=== PATIENT | female | born 1990 | race Caucasian/White ===

== ENCOUNTER → 2023-12-26 07:47 | Outpatient (REF) | payer OTHER, SELFPAY | LOC: PNTC 07:47 | PROVIDERS: ATTENDING PHYSICIAN Obstetrics & Gynecology | DX: Z87.410 Personal history of cervical dysplasia (principal); O09.819 Supervision of pregnancy resulting from assisted reproductive technology, unspecified trimester; O16.9 Unspecified maternal hypertension, unspecified trimester | CPT/HCPCS: 76805; 76817 ==

== ENCOUNTER → 2024-01-24 08:15 | Outpatient (REF) | payer OTHER, SELFPAY | LOC: PNTC 08:15 | PROVIDERS: ATTENDING PHYSICIAN Obstetrics & Gynecology | DX: O09.529 Supervision of elderly multigravida, unspecified trimester (principal); O34.40 Maternal care for other abnormalities of cervix, unspecified trimester; O09.819 Supervision of pregnancy resulting from assisted reproductive technology, unspecified trimester; O10.019 Pre-existing essential hypertension complicating pregnancy, unspecified trimester | CPT/HCPCS: 76811; 76817 ==

== ENCOUNTER → 2024-02-20 10:42 | Outpatient (REF) | payer OTHER, SELFPAY | LOC: PNTC 10:42 | PROVIDERS: ATTENDING PHYSICIAN Obstetrics & Gynecology | DX: O09.819 Supervision of pregnancy resulting from assisted reproductive technology, unspecified trimester (principal); O09.529 Supervision of elderly multigravida, unspecified trimester; O10.019 Pre-existing essential hypertension complicating pregnancy, unspecified trimester; O34.40 Maternal care for other abnormalities of cervix, unspecified trimester | CPT/HCPCS: 76816; 76817 ==

== ENCOUNTER → 2024-03-20 09:22 | Outpatient (REF) | payer OTHER, SELFPAY | LOC: PNTC 09:22 | PROVIDERS: ATTENDING PHYSICIAN Obstetrics & Gynecology | DX: O34.40 Maternal care for other abnormalities of cervix, unspecified trimester (principal) | CPT/HCPCS: 76816 ==

== ENCOUNTER → 2024-04-17 08:36 | Outpatient (REF) | payer OTHER, SELFPAY | LOC: PNTC 08:36 | PROVIDERS: ATTENDING PHYSICIAN Obstetrics & Gynecology | DX: Z87.410 Personal history of cervical dysplasia (principal); O10.019 Pre-existing essential hypertension complicating pregnancy, unspecified trimester; O09.819 Supervision of pregnancy resulting from assisted reproductive technology, unspecified trimester | CPT/HCPCS: 59025; 76816 ==

== ENCOUNTER → 2024-04-24 08:33 | Outpatient (REF) | payer OTHER, SELFPAY | LOC: PNTC 08:33 | PROVIDERS: ATTENDING PHYSICIAN Obstetrics & Gynecology | DX: O34.40 Maternal care for other abnormalities of cervix, unspecified trimester (principal) | CPT/HCPCS: 59025; 76815 ==

== ENCOUNTER → 2024-05-01 14:33 | Outpatient (REF) | payer OTHER, SELFPAY | LOC: PNTC 14:33 | PROVIDERS: ATTENDING PHYSICIAN Obstetrics & Gynecology | DX: O34.40 Maternal care for other abnormalities of cervix, unspecified trimester (principal); Z34.90 Encounter for supervision of normal pregnancy, unspecified, unspecified trimester | CPT/HCPCS: 76815 ==

== ENCOUNTER → 2024-05-08 08:32 | Outpatient (REF) | payer OTHER, SELFPAY | LOC: PNTC 08:32 | PROVIDERS: ATTENDING PHYSICIAN Obstetrics & Gynecology | DX: O34.40 Maternal care for other abnormalities of cervix, unspecified trimester (principal) | CPT/HCPCS: 59025; 76815 ==

== ENCOUNTER → 2024-05-15 08:32 | Outpatient (REF) | payer OTHER, SELFPAY | LOC: PNTC 08:32 | PROVIDERS: ATTENDING PHYSICIAN Obstetrics & Gynecology | DX: O09.819 Supervision of pregnancy resulting from assisted reproductive technology, unspecified trimester (principal); O10.119 Pre-existing hypertensive heart disease complicating pregnancy, unspecified trimester | CPT/HCPCS: 59025; 76816 ==

== ENCOUNTER 2024-05-18 17:01 | Observation (INO) | payer OTHER, SELFPAY ==
[2024-05-18 17:20] VITALS: BP 121/80; BMI 32.3
[2024-05-18 17:45] LABS: % Basophils 0.4 % (0-2); % Eosinophils 0.8 % (0-6); % Immature Granulocytes 0.6 % (0-0.5); % Lymphocytes 17.2 % (20.5-51.1); % Monocytes 4.5 % (1.7-9.3); % Neutrophils 76.5 % (42.2-75.2); Absolute Basophils 0.1 10^3/uL (0-0.2); Absolute Eosinophils 0.1 10^3/uL (0-0.7); Absolute Immature Granulocytes 0.1 10^3/uL (0-0.05); Absolute Lymphocytes 2.4 10^3/uL (1.2-3.4); Absolute Monocytes 0.6 10^3/uL (0.1-0.6); Absolute Neutrophils 10.6 10^3/uL (1.4-6.5); Hematocrit 31.6 % (37.0-47.0); Hemoglobin 10.9 g/dL (12.0-16.0); Mean Corp Hgb Conc. 34.5 g/dL (33.0-37.0); Mean Corpuscular Hgb 32.2 pg (27.0-31.0); Mean Corpuscular Volume 93.5 fL (81.0-99.0); Mean Platelet Volume 10.7 fL (7.4-10.4); Nucleated Red Blood Cells % 0 %; Platelet Count 210 10^3/uL (130-400); Red Blood Cell Count 3.38 10^6/uL (4.20-5.40); Red Cell Dist. Width 14.2 % (11.5-14.5); White Blood Cell Count 13.9 10^3/uL (4.8-10.8)
[2024-05-18 18:02] LABS: ALT (SGPT) 12 U/L (0-35); AST (SGOT) 28 U/L (14-36); Albumin 3.5 g/dl (3.5-5.0); Alkaline Phosphatase 126 U/L (38-126); Blood Urea Nitrogen 9 mg/dl (7-17); Calcium 9.1 mg/dl (8.4-10.2); Carbon Dioxide 20 mmol/L (22-30); Chloride 105 mmol/L (98-107); Estimated Creatinine Clearance 114 ml/min; Glucose 128 mg/dl (70-99); Sodium 134 mmol/L (135-145); Total Bilirubin 0.3 mg/dl (0.2-1.3); Total Protein 5.9 g/dl (6.3-8.2); eGFR > 60.00
[2024-05-18 18:25] LABS: Protein/creatinine Ratio 0.1; Urine Protein 12 mg/dl
[2024-05-18] MEDS: FIORICET 1 TAB PO (18:27)
== END 2024-05-18 20:21 | disposition home or self-care (01) ==
LOC: LDRP 17:01
PROVIDERS: ADMITTING PHYSICIAN Obstetrics & Gynecology; FAMILY PHYSICIAN Internal Medicine
DX: R51.9 Headache, unspecified (principal); R22.33 Localized swelling, mass and lump, upper limb, bilateral; R22.41 Localized swelling, mass and lump, right lower limb; Z88.2 Allergy status to sulfonamides; O09.523 Supervision of elderly multigravida, third trimester; Z3A.37 37 weeks gestation of pregnancy
CPT/HCPCS: 80053; 82570; 84156; 85025; G0378

== ENCOUNTER → 2024-05-22 08:31 | Outpatient (REF) | payer OTHER, SELFPAY | LOC: PNTC 08:31 | PROVIDERS: ATTENDING PHYSICIAN Obstetrics & Gynecology | DX: Z87.410 Personal history of cervical dysplasia (principal) | CPT/HCPCS: 59025; 76815 ==

== ENCOUNTER 2024-05-23 20:51 | Inpatient (IN) | payer OTHER, SELFPAY ==
[2024-05-23 21:01] VITALS: BP 128/92; BMI 32.7
[2024-05-23 21:38] LABS: % Basophils 0.4 % (0-2); % Eosinophils 1.1 % (0-6); % Immature Granulocytes 0.4 % (0-0.5); % Lymphocytes 22.6 % (20.5-51.1); % Neutrophils 70.5 % (42.2-75.2); Absolute Basophils 0.1 10^3/uL (0-0.2); Absolute Eosinophils 0.1 10^3/uL (0-0.7); Absolute Immature Granulocytes 0.1 10^3/uL (0-0.05); Absolute Lymphocytes 2.8 10^3/uL (1.2-3.4); Absolute Monocytes 0.6 10^3/uL (0.1-0.6); Absolute Neutrophils 8.6 10^3/uL (1.4-6.5); Mean Corp Hgb Conc. 35.5 g/dL (33.0-37.0); Mean Corpuscular Volume 93.1 fL (81.0-99.0); Mean Platelet Volume 10.7 fL (7.4-10.4); Nucleated Red Blood Cells % 0 %; Platelet Count 212 10^3/uL (130-400); Red Blood Cell Count 3.33 10^6/uL (4.20-5.40); Red Cell Dist. Width 14.3 % (11.5-14.5); White Blood Cell Count 12.2 10^3/uL (4.8-10.8)
[2024-05-23 21:52] LABS: ALT (SGPT) 13 U/L (0-35); AST (SGOT) 27 U/L (14-36); Albumin 3.5 g/dl (3.5-5.0); Alkaline Phosphatase 123 U/L (38-126); Blood Urea Nitrogen 7 mg/dl (7-17); Calcium 9.1 mg/dl (8.4-10.2); Carbon Dioxide 23 mmol/L (22-30); Chloride 106 mmol/L (98-107); Estimated Creatinine Clearance 114 ml/min; Glucose 103 mg/dl (70-99); Potassium 3.7 mmol/L (3.5-5.1); Sodium 134 mmol/L (135-145); Total Bilirubin 0.3 mg/dl (0.2-1.3); Total Protein 5.8 g/dl (6.3-8.2); eGFR > 60.00
[2024-05-23 22:09] LABS: Protein/creatinine Ratio 0.4; Urine Protein 24 mg/dl
[2024-05-24] MEDS: CYTOTEC 25 MICROGRAM VAG (03:38)
[2024-05-24] MEDS: LR 1000 IV (07:45)
[2024-05-24] MEDS: FENTANYL/BUPIVACAINE 100 EPIDURAL (09:02)
[2024-05-24] MEDS: SUBLIMAZE 100 MCG EPIDURAL (09:02)
[2024-05-24] MEDS: HEMABATE 250 MCG IM (13:15)
[2024-05-24] MEDS: TRANEXAMIC ACID 100 IV (13:21)
[2024-05-24] MEDS: CYTOTEC 800 MCG RECTAL (13:31)
[2024-05-24 13:48] LABS: % Eosinophils 0.1 % (0-6); % Immature Granulocytes 0.6 % (0-0.5); % Monocytes 5.1 % (1.7-9.3); % Neutrophils 84.2 % (42.2-75.2); Absolute Lymphocytes 0.7 10^3/uL (1.2-3.4); Absolute Monocytes 0.4 10^3/uL (0.1-0.6); Absolute Neutrophils 5.9 10^3/uL (1.4-6.5); Mean Corp Hgb Conc. 34.3 g/dL (33.0-37.0); Mean Corpuscular Hgb 33.3 pg (27.0-31.0); Mean Corpuscular Volume 97.3 fL (81.0-99.0); Nucleated Red Blood Cells % 0 %; Red Blood Cell Count 1.11 10^6/uL (4.20-5.40); Red Cell Dist. Width 14.2 % (11.5-14.5)
[2024-05-24 13:53] LABS: Hemoglobin 3.7 g/dL (12.0-16.0)
[2024-05-24 13:54] LABS: Hematocrit 10.8 % (37.0-47.0)
[2024-05-24] MEDS: ANCEF 10 IV (13:57)
[2024-05-24 14:10] LABS: % Basophils 0.2 % (0-2); % Eosinophils 0.1 % (0-6); % Immature Granulocytes 0.6 % (0-0.5); % Lymphocytes 9.7 % (20.5-51.1); % Neutrophils 83.4 % (42.2-75.2); Absolute Immature Granulocytes 0.1 10^3/uL (0-0.05); Absolute Lymphocytes 1.6 10^3/uL (1.2-3.4); Absolute Neutrophils 13.6 10^3/uL (1.4-6.5); Hematocrit 32.7 % (37.0-47.0); Hemoglobin 11.4 g/dL (12.0-16.0); Mean Corp Hgb Conc. 34.9 g/dL (33.0-37.0); Mean Corpuscular Hgb 33.6 pg (27.0-31.0); Mean Corpuscular Volume 96.5 fL (81.0-99.0); Mean Platelet Volume 10.9 fL (7.4-10.4); Nucleated Red Blood Cells % 0 %; Platelet Count 210 10^3/uL (130-400); Red Blood Cell Count 3.39 10^6/uL (4.20-5.40); Red Cell Dist. Width 14.2 % (11.5-14.5); White Blood Cell Count 16.3 10^3/uL (4.8-10.8)
[2024-05-24 14:21] VITALS: BP 83/53
[2024-05-24 14:21] LABS: INR 0.95; PT 12.7 Sec (11.4-14.6)
[2024-05-24 14:22] LABS: APTT 24.9 Sec (23.4-35.0)
[2024-05-24 14:30] LABS: ALT (SGPT) 13 U/L (0-35); AST (SGOT) 31 U/L (14-36); Albumin 3.2 g/dl (3.5-5.0); Alkaline Phosphatase 119 U/L (38-126); Blood Urea Nitrogen 11 mg/dl (7-17); Calcium 8.9 mg/dl (8.4-10.2); Carbon Dioxide 24 mmol/L (22-30); Chloride 103 mmol/L (98-107); Estimated Creatinine Clearance 114 ml/min; Glucose 85 mg/dl (70-99); Potassium 4.3 mmol/L (3.5-5.1); Sodium 133 mmol/L (135-145); Total Bilirubin 0.3 mg/dl (0.2-1.3); Total Protein 5.5 g/dl (6.3-8.2); eGFR > 60.00
[2024-05-24] MEDS: MOTRIN 600 MG PO ×2 (16:49→23:04)
[2024-05-24] MEDS: TYLENOL 650 MG PO (20:02)
[2024-05-24] MEDS: ANCEF 5 IV (22:30)
[2024-05-25] MEDS: TYLENOL 650 MG PO ×2 (03:46→08:49)
[2024-05-25] MEDS: ANCEF 5 IV (05:14)
[2024-05-25] MEDS: MOTRIN 600 MG PO (05:14)
[2024-05-25 05:53] LABS: Hematocrit 28.9 % (37.0-47.0); Hemoglobin 10.2 g/dL (12.0-16.0)
[2024-05-25] MEDS: FEOSOL 325 MG PO (08:49)
[2024-05-25] MEDS: DILAUDID 2 MG PO ×3 (11:25→19:50)
[2024-05-25 14:01] LABS: Syphilis/T. pallidum Ab Reflex Negative (Negative)
[2024-05-25 16:21] LABS: Urine Albumin Trace (Neg - Trace); Urine Bilirubin Negative (Negative); Urine Character Slightly Cloudy (Clear); Urine Color Yellow; Urine Glucose Negative (Negative); Urine Ketone Negative (Negative); Urine Leukocyte 1+ (Negative); Urine Nitrite Negative (Negative); Urine Occult Blood 4+ (Negative); Urine Specific Gravity 1.015 (<1.030); Urine Urobilinogen Negative (Neg - 1+)
[2024-05-25 16:46] LABS: Urine Bacteria Few (Negative); Urine Red Blood Cell 26-30 /HPF (0-2); Urine Squamous Cell 16-20 /LPF (Few)
[2024-05-26] MEDS: DILAUDID 2 MG PO (01:03)
[2024-05-26] MEDS: TYLENOL 650 MG PO (05:21)
[2024-05-26] MEDS: MOTRIN 600 MG PO (05:21)
[2024-05-26] MEDS: FEOSOL 325 MG PO (08:42)
== END 2024-05-26 11:04 | disposition home or self-care (01) | DRG 807 ==
LOC: LDRP 20:51
PROVIDERS: Obstetrics & Gynecology; ADMITTING PHYSICIAN Obstetrics & Gynecology
PROC: 30233N1 Transfusion of Nonautologous Red Blood Cells into Peripheral Vein, Percutaneous Approach (ICD-10-PCS; 2024-05-24)
PROC: 0HQ9XZZ Repair Perineum Skin, External Approach (ICD-10-PCS; 2024-05-24)
PROC: 10E0XZZ Delivery of Products of Conception, External Approach (ICD-10-PCS; 2024-05-24)
PROC: 3E0P7VZ Introduction of Hormone into Female Reproductive, Via Natural or Artificial Opening (ICD-10-PCS; 2024-05-24)
PROC: 10907ZC Drainage of Amniotic Fluid, Therapeutic from Products of Conception, Via Natural or Artificial Opening (ICD-10-PCS; 2024-05-24)
DX: O11.4 Pre-existing hypertension with pre-eclampsia, complicating childbirth (principal); Z37.0 Single live birth; O10.02 Pre-existing essential hypertension complicating childbirth; Z3A.37 37 weeks gestation of pregnancy; O70.0 First degree perineal laceration during delivery; O72.1 Other immediate postpartum hemorrhage; O90.81 Anemia of the puerperium; D64.9 Anemia, unspecified; Z88.2 Allergy status to sulfonamides; O99.284 Endocrine, nutritional and metabolic diseases complicating childbirth; E28.2 Polycystic ovarian syndrome; Z80.0 Family history of malignant neoplasm of digestive organs
CPT/HCPCS: 88307; 76857; 80053; 81003; 81015; 82570; 84156; 85014; 85018; 85025; 85610; 85730; 86780; 86850; 86900; 86901; 86920; 87086; P9016

== ENCOUNTER 2024-06-04 12:32 | Observation (INO) | payer OTHER, SELFPAY ==
[2024-06-04 12:41] VITALS: BP 143/92; BMI 29.4
[2024-06-04 13:16] LABS: % Basophils 0.9 % (0-2); % Eosinophils 1.9 % (0-6); % Immature Granulocytes 0.3 % (0-0.5); % Monocytes 4.6 % (1.7-9.3); % Neutrophils 68.3 % (42.2-75.2); Absolute Basophils 0.1 10^3/uL (0-0.2); Absolute Eosinophils 0.2 10^3/uL (0-0.7); Absolute Lymphocytes 2.3 10^3/uL (1.2-3.4); Absolute Monocytes 0.4 10^3/uL (0.1-0.6); Absolute Neutrophils 6.4 10^3/uL (1.4-6.5); Hemoglobin 11.5 g/dL (12.0-16.0); Mean Corp Hgb Conc. 33.8 g/dL (33.0-37.0); Mean Corpuscular Hgb 32.4 pg (27.0-31.0); Mean Corpuscular Volume 95.8 fL (81.0-99.0); Mean Platelet Volume 9.7 fL (7.4-10.4); Nucleated Red Blood Cells % 0 %; Platelet Count 338 10^3/uL (130-400); Red Blood Cell Count 3.55 10^6/uL (4.20-5.40); Red Cell Dist. Width 13.9 % (11.5-14.5); White Blood Cell Count 9.4 10^3/uL (4.8-10.8)
[2024-06-04 13:31] LABS: ALT (SGPT) 33 U/L (0-35); AST (SGOT) 42 U/L (14-36); Albumin 4.4 g/dl (3.5-5.0); Alkaline Phosphatase 88 U/L (38-126); Blood Urea Nitrogen 15 mg/dl (7-17); Calcium 10.9 mg/dl (8.4-10.2); Carbon Dioxide 26 mmol/L (22-30); Chloride 105 mmol/L (98-107); Estimated Creatinine Clearance 93 ml/min; Glucose 77 mg/dl (70-99); Potassium 4.6 mmol/L (3.5-5.1); Sodium 138 mmol/L (135-145); Total Bilirubin 0.5 mg/dl (0.2-1.3); Total Protein 6.9 g/dl (6.3-8.2); eGFR > 60.00
[2024-06-04] MEDS: MOTRIN 600 MG PO (14:08)
--- NOTE | 2024-06-04 14:50 | W.PN.ANES ---
Anesthesia Note
- -
06/04/24 14:50
The patient is day 11 post SVG with epidural analgesia presents for headache, no indication of dural puncture in the epidural note. The DE OLIVEIRA started initially right after when sitting up but was not relived when laying down. The patient now
describes her de oliveira as right sided only, not precipitated by sitting position nor relieved by supine position. The BP has been recently elevated, she was started on Labetalol 50 BID 4 days ago. Currently BP IS 143/92. No other neurologic symptoms,
fever, no prior h/o DE OLIVEIRA.
Impression: DE OLIVEIRA less likely caused by dural puncture, would consider other post factors including better BP control. Neuro consult and input may be necessary.
--- NOTE | 2024-06-04 15:03 | CON.NEURO4 ---
Documented by User: Linda Perez NP 06/04/24 16:00
Consultation - Neurology 4
-
CONSULTING PHYSICIAN: Jah Anderson MD
REFERRING PHYSICIAN: [employer] Dr. Phillip
DICTATED BY: CYNTHIA Campbell
DATE/TIME OF REQUEST: 06/04/24
DATE/TIME OF CONSULTATION: 06/04/24
Reason for Consultation: Headache
History of Present Illness:
This is a 33-year-old right-handed female PPD #10 with a PMH of HTN and depression who has presented to the hospital with report of intractable headache. Patient reports a history of hypertension starting in 2021, she is followed by Cardiology as
an outpatient. She was taking labetalol 50mg BID prior to her most recent , she stopped this in October 2023 and then just restarted it one week ago. She had preeclampsia during this without severe features and was induced. Two
weeks prior to delivery she reports having high blood pressure and a mild headache that resolved with Tylenol. Otherwise, she denies any history of migraines or headaches. On 05/24/24 she reports getting an epidural early in the day and then having a
vaginal delivery later in the day. That evening, she reports developing a headache different from her previous headache that goes across her forehead, behind her right eye, radiates down her neck. Her delivery was complicated by
hemorrhage, hemoglobin level of 3.7, currently up to 11.5. The headache was intermittent for the first few days but then became constant. She has been taking Motrin and Tylenol around the clock with no relief of her symptoms. Currently she rates her
headache a 7/10. She denies any photo/phonophobia, nausea, or vomiting. The headache does not worsen with sitting/standing and does not change when she lies flat. She reports having mild neck stiffness the day following delivery but none since. She
denies any dizziness, visual changes, speech/swallowing difficulty, numbness, weakness, chest pain, palpitations, and shortness of breath. She reports poor sleep since giving . She drinks coffee daily and has not cut out caffeine recently. She
denies any fever, chills, body aches, recent infections.
Past Medical History: HTN, depression, remote asthma
Surgical History: LEEP
Family History: Reviewed and noncontributory.
Social History: Former smoker. Denies current alcohol. No illicit drug use. Daily caffeine with coffee.
Allergies: Sulfa.
Home Medications:See below.
Review of Symptoms:
Patient denies any fever, chest pain, shortness of breath, GI or symptoms.
�Per the HPI.�All systems are reviewed negative except above.
Physical Exam:
The patient is afebrile, abdomen is soft, breathing is unlabored, skin is warm and dry, no edema.
Neurologic Examination:
The patient is awake, alert and oriented x 3. She is able to follow commands and answer questions appropriately. There is no aphasia or dysarthria. On cranial nerve assessment, pupils are 3 mm bilateral, round and reactive to light and
accommodation. Visual lópez are full. Extraocular movements are intact. Facial sensations are intact and bilaterally symmetrical, there is no facial asymmetry. Hearing is intact bilaterally to normal conversation volume. Tongue palate and uvula are
midline. Sternocleidomastoid strengths are full bilaterally. Motor strengths are 5/5 bilateral upper and lower extremities on medical research Douglas scale. There is no drift or involuntary movement noted. There was no extinction noted on double
simultaneous stimulation. Coordination is intact by finger to nose bilaterally.
Lab Results: See below.
Neuro Imaging: None.
Differentials for the patient's presentation include:
1. New daily, intractable headache.
2. Low concern for CSF leak given absence of postural symptoms associated with headache, but possible given recent epidural.
3. No migrainous features of headache.
4. Hypertension.
5. Recent vaginal delivery complicated by preeclampsia and hemorrhage.
Patient has the following risk factors for their symptoms: HTN, recent delivery, epidural
Recommendations:
-Provide metoclopramide 10mg IV x1 now for headache, avoid prochlorperazine due to sulfa allergy. May repeat this q6hrs PRN headache.
-Okay to continue Tylenol 1000mg PO 6hrs PRN headache for a few days.
-Would avoid using ibuprofen products greater than two days a week given potential for rebound headache.
-Goal normotension.
-MRI brain w/ and w/o contrast pending.
Discussed patient care with: Dr. Anderson, the patient
Vital Signs and Labs
-
Vital Signs and Labs:
Vital Signs
Temp Pulse Resp BP
97.8 F 72 18 143/92
06/04/24 12:41 06/04/24 12:41 06/04/24 12:41 06/04/24 12:41
Lab Results
06/04/24 12:55
06/04/24 12:55
Sodium 138 mmol/L (135-145) 06/04/24 12:55
Potassium 4.6 mmol/L (3.5-5.1) 06/04/24 12:55
BUN 15 mg/dl (7-17) 06/04/24 12:55
Glucose 77 mg/dl (70-99) 06/04/24 12:55
Calcium 10.9 mg/dl (8.4-10.2) H 06/04/24 12:55
Medications
-
Active Medications
Generic Name Dose Route Start Last Admin
Trade Name Freq PRN Reason Stop Dose Admin
Ibuprofen 600 mg 06/04/24 12:49 06/04/24 14:08
Ibuprofen 600 Mg Tablet PO 07/02/24 12:48 600 mg
Q6HPRN PRN Administration
pain
Home Medications
�Medication �Instructions �Recorded
vitamin-ferrous fumarate 1 tab PO DAILY Supplement 05/18/24
28 mg iron-folic acid 800 mcg
tablet ( Tablet)
Vitamin C 1,000 mg PO 1XD 05/23/24
Vitamin D3 125 mcg PO 1XD 05/23/24
vitamin E 180 tab PO D 05/23/24
ferrous sulfate 325 mg (65 mg 325 mg PO DAILY #0 tabs 05/26/24
iron) tablet (FeroSul)
labetalol 50 mg PO BID 06/04/24

Documented by User: Jah Anderson MD 06/04/24 21:43
Consultation - Neurology 4
-
CONSULTING PHYSICIAN: Jah Anderson MD
REFERRING PHYSICIAN: [employer] Dr. Phillip
DICTATED BY: CYNTHIA Campbell
DATE/TIME OF REQUEST: 06/04/24
DATE/TIME OF CONSULTATION: 06/04/24
Reason for Consultation: Headache
History of Present Illness:
This is a 33-year-old right-handed female PPD #10 with a PMH of HTN and depression who has presented to the hospital with report of intractable headache. Patient reports a history of hypertension starting in 2021, she is followed by Cardiology as
an outpatient. She was taking labetalol 50mg BID prior to her most recent , she stopped this in October 2023 and then just restarted it one week ago. She had preeclampsia during this without severe features and was induced. Two
weeks prior to delivery she reports having high blood pressure and a mild headache that resolved with Tylenol. Otherwise, she denies any history of migraines or headaches. On 05/24/24 she reports getting an epidural early in the day and then having a
vaginal delivery later in the day. That evening, she reports developing a headache different from her previous headache that goes across her forehead, behind her right eye, radiates down her neck. Her delivery was complicated by
hemorrhage, hemoglobin level of 3.7, currently up to 11.5. The headache was intermittent for the first few days but then became constant. She has been taking Motrin and Tylenol around the clock with no relief of her symptoms. Currently she rates her
headache a 7/10. She denies any photo/phonophobia, nausea, or vomiting. The headache does not worsen with sitting/standing and does not change when she lies flat. She reports having mild neck stiffness the day following delivery but none since. She
denies any dizziness, visual changes, speech/swallowing difficulty, numbness, weakness, chest pain, palpitations, and shortness of breath. She reports poor sleep since giving . She drinks coffee daily and has not cut out caffeine recently. She
denies any fever, chills, body aches, recent infections.
Past Medical History: HTN, depression, remote asthma
Surgical History: LEEP
Family History: Reviewed and noncontributory.
Social History: Former smoker. Denies current alcohol. No illicit drug use. Daily caffeine with coffee.
Allergies: Sulfa.
Home Medications:See below.
Review of Symptoms:
Patient denies any fever, chest pain, shortness of breath, GI or symptoms.
�Per the HPI.�All systems are reviewed negative except above.
Physical Exam:
The patient is afebrile, abdomen is soft, breathing is unlabored, skin is warm and dry, no edema.
Neurologic Examination:
The patient is awake, alert and oriented x 3. She is able to follow commands and answer questions appropriately. There is no aphasia or dysarthria. On cranial nerve assessment, pupils are 3 mm bilateral, round and reactive to light and
accommodation. Visual lópez are full. Extraocular movements are intact. Facial sensations are intact and bilaterally symmetrical, there is no facial asymmetry. Hearing is intact bilaterally to normal conversation volume. Tongue palate and uvula are
midline. Sternocleidomastoid strengths are full bilaterally. Motor strengths are 5/5 bilateral upper and lower extremities on medical research Douglas scale. There is no drift or involuntary movement noted. There was no extinction noted on double
simultaneous stimulation. Coordination is intact by finger to nose bilaterally.
Lab Results: See below.
Neuro Imaging: None.
Differentials for the patient's presentation include:
1. New daily, intractable headache.
2. Low concern for CSF leak given absence of postural symptoms associated with headache, but possible given recent epidural.
3. No migrainous features of headache.
4. Hypertension.
5. Recent vaginal delivery complicated by preeclampsia and hemorrhage.
Patient has the following risk factors for their symptoms: HTN, recent delivery, epidural
Recommendations:
-Provide metoclopramide 10mg IV x1 now for headache, avoid prochlorperazine due to sulfa allergy. May repeat this q6hrs PRN headache.
-Okay to continue Tylenol 1000mg PO 6hrs PRN headache for a few days.
-Would avoid using ibuprofen products greater than two days a week given potential for rebound headache.
-Goal normotension.
-MRI brain w/ and w/o contrast pending.
Discussed patient care with: Dr. Anderson, the patient
33 yr. old lady with h/o HTN, depression pre eclampsia who had epidural on May 24 followed by daily HAs, Right frontal tight extending to neck/Right shoulder( 6-05/23) without migraine features not relieved by Tylenol or Motrin. No relief with IV
Reglan. Exam WNL
Plan: Tylenol with Codeine prn, Toradol IV prn and Magnesium 500mg daily.
Increase Labetolol 100mg BID
MRI Brain
[2024-06-04] MEDS: TYLENOL 1000 MG PO (16:12)
[2024-06-04] MEDS: REGLAN 10 MG IV (16:13)
[2024-06-04] MEDS: FLUSH (NSS) 1 FLUSH IV (16:13)
[2024-06-04] MEDS: TYLENOL #3 1 TABLET PO (19:36)
[2024-06-04] MEDS: TRANDATE 50 MG PO (19:38)
[2024-06-05] MEDS: TORADOL 30 MG IV (00:41)
[2024-06-05] MEDS: FLUSH (NSS) 3 FLUSH IV (00:46)
[2024-06-05] MEDS: DILAUDID 2 MG PO (05:49)
[2024-06-05] MEDS: LR 1000 IV (07:51)
[2024-06-05] MEDS: TRANDATE 50 MG PO (07:52)
[2024-06-05] MEDS: MAGNESIUM OXIDE 500 MG PO (10:24)
[2024-06-05 11:32] LABS: ALT (SGPT) 27 U/L (0-35); AST (SGOT) 33 U/L (14-36)
[2024-06-05] MEDS: MOTRIN 600 MG PO (12:22)
--- NOTE | 2024-06-05 13:18 | W.PN.NEURO.1 ---
Documented by User: Linda Perez NP 06/05/24 13:32
Today's Communication / Plan
-
.
Neuro Assessment/Plan
Assessment
This is a 33-year-old right-handed female PPD #10 (vaginal delivery with epidural complicated by preeclampsia and hemorrhage) with a PMH of HTN and depression who has presented to the hospital with report of intractable headache,
unaffected by position change and without any photo/phonophobia, nausea, or vomiting.
-MRI brain 06/04/24: No acute intracranial abnormality.
I. New daily, intractable headache. MRI brain negative for structural abnormality. Etiology likely recent life stressors, poor sleep.
II. Low concern for CSF leak given absence of postural symptoms associated with headache.
III. No migrainous features of headache.
IV. Hypertension.
V. Recent vaginal delivery complicated by preeclampsia and hemorrhage.
Plan
-Rest encouraged as much as possible.
-Continue small amount of daily caffeine.
-Discussed option of increasing home labetalol 50mg BID to 100mg BID as this can help with headache prevention. Patient does not wish to do this currently.
-Initiate OTC supplements magnesium 400mg and riboflavin 400mg daily for headache prevention.
-Ensure adequate hydration.
-Okay to continue metoclopramide 10mg PO q6hrs PRN headache.
-Okay to continue Tylenol 1000mg PO 6hrs PRN headache for a few days.
-Would avoid using ibuprofen containing products greater than two days a week given potential for rebound headache.
-Would also avoid narcotics given potential for rebound headache.
-Goal normotension.
-Neurology will follow as-needed, please contact our Neurology service with any questions/concerns.
Subjective/Objective
Subjective Data
Date of Service: June 05, 2024
No acute events overnight. Patient reports her headache is a 3/10 today. She is unsure which medications were most effective for relieving her head discomfort. She denies any dizziness, vision changes, speech/swallow difficulty, neck pain, numbness,
weakness, nausea, photo/phonophobia, chest pain, palpitations, and shortness of breath.
Objective Data
Vital Signs
Temp Pulse Resp BP
97.8 F 74 18 135/88
06/04/24 12:41 06/05/24 07:52 06/04/24 12:41 06/05/24 07:52
Lab Results
06/04/24 12:55
06/04/24 12:55
Sodium 138 mmol/L (135-145) 06/04/24 12:55
Potassium 4.6 mmol/L (3.5-5.1) 06/04/24 12:55
BUN 15 mg/dl (7-17) 06/04/24 12:55
Glucose 77 mg/dl (70-99) 06/04/24 12:55
Calcium 10.9 mg/dl (8.4-10.2) H 06/04/24 12:55
Patient Allergies
Sulfa (Sulfonamide Antibiotics) Allergy (Verified 05/23/24 21:03)
Nausea / Vomiting
Review of Systems
-
History Source: Patient
Constitutional: Fatigue
EENT: Negative Blurry Vision, Decreased Vision or Swallowing Difficulty
Respiratory: Negative Cough or Trouble Breathing
Cardiac: Negative Chest Pain or Palpitations
Abdomen/GI: Negative Nausea
Neuro: Headache; Negative Dizzy, Weakness, Numbness, Ataxia, Tremors or Speech Problem
Physical Exam
-
General: No Apparent Distress
Eyes: No Ptosis and PERRLA
HEENT: Normocephalic and Atraumatic
Neck: Full Range of Motion
Respiratory: No Dyspnea
Extremities: No Clubbing, No Cyanosis and No Edema
Psych: Unremarkable
Extended Neurological Exam
Mood & Affect: Mood Unremarkable and Affect Unremarkable
Attention Span & Concentration: Awake, Alert, Interactive and No Difficulty with 2 Step Request
Memory: Unremarkable (AAOx3) and Able to Recall
Tremor: Hand Tremor Absent and Head Tremor Absent
Involuntary Movement: None
Speech: Quality Unremarkable, Quantity Unremarkable and Rate of Production Unremarkable
Cranial Nerve II: Left Eye: Pupillary Reactivity Unremarkable, Pupillary Size Unremarkable and Visual Faith Intact
Cranial Nerve II: Right Eye: Pupillary Reactivity Unremarkable, Pupillary Size Unremarkable and Visual Faith Intact
Cranial Nerves III, IV, : Extraocular Movement: Extraocular Movement Full in all Directions
Cranial Nerve VII: Facial Symmetry: Normal Facial Symmetry
Cranial Nerve VIII: Hearing: Unremarkable Hearing to Normal Conversational Volume
Cranial Nerves IX, X: Palate Movement: Palate Elevation Symmetric
Cranial Nerve XI: Shoulder Shrug: Unremarkable
Cranial Nerve XII: Tongue Protusion: Midline
Muscle Strength, Overall: Full Throughout
Pronator Drift: No Drift in Upper Extremities and No Drift in Lower Extremities
Coordination: [id number] Testing Unremarkable
Data Reviewed
-
MRI Head: Report Reviewed and Image Reviewed
Labs: Report Reviewed
Reviewed with: Physician and Patient
Medications
-
Medications:
Generic Name Dose Route Start Last Admin
Trade Name Freq PRN Reason Stop Dose Admin
Acetaminophen 1,000 mg 06/04/24 15:54 06/04/24 16:12
Acetaminophen 500 Mg Tablet PO 07/02/24 15:53 1,000 mg
Q6HPRN PRN Administration
pain
Hydromorphone HCl 2 mg 06/05/24 05:32 06/05/24 05:49
Hydromorphone 2 Mg Tablet PO 06/19/24 05:31 2 mg
Q4HPRN PRN Administration
pain
Lactated Ringer's 1,000 mls @ 0 mls/hr 06/05/24 08:00 06/05/24 07:51
Lr IV 1,000 mls
DIRECTED ANDREY Administration
As Directed
Ibuprofen 600 mg 06/04/24 12:49 06/05/24 12:22
Ibuprofen 600 Mg Tablet PO 07/02/24 12:48 600 mg
Q6HPRN PRN Administration
pain
Ketorolac Tromethamine 30 mg 06/04/24 20:00 06/05/24 00:41
Ketorolac 30 Mg/Ml Injection IV 06/09/24 19:59 30 mg
Q6HPRN PRN Administration
pain
Labetalol HCl 50 mg 06/05/24 20:00
Labetalol 100 Mg Tablet PO 07/02/24 19:59
BID ANDREY
Magnesium Oxide 500 mg 06/05/24 10:05 06/05/24 10:24
Magnesium Oxide 500 Mg Tablet PO 07/03/24 10:04 500 mg
DAILY ANDREY Administration
Metoclopramide HCl 10 mg 06/04/24 15:58
Metoclopramide 10 Mg/2 Ml Vial IV 07/02/24 15:57
Q6HPRN PRN
headache
Ondansetron HCl 4 mg 06/04/24 19:57
Ondansetron 4 Mg/2 Ml Vial IV 07/02/24 19:56
Q6HPRN PRN
nausea
Oxycodone/Acetaminophen 1 tablet 06/05/24 07:42
Oxycodone 5 Mg/Apap 325 Mg (Percocet) PO 06/19/24 07:41
Q4HPRN PRN
severe pain
Sodium Chloride 0 flush 06/04/24 16:00 06/05/24 00:46
Sodium Chloride 0.9% (Flush) Syringe IV 07/02/24 15:59 3 flush
PER PROTOCOL ANDREY Administration

Documented by User: Jah Anderson MD 06/10/24 21:36
Today's Communication / Plan
-
33 yr. old lady with h/o new onset DE OLIVEIRA following Epidural with normal MRI head
Plan: LAbetolol daily, Tylenol prn , Magnesium daily
--- NOTE | 2024-06-05 22:18 | W.PN.UPDATE ---
Update Note
Progress Note Update
Late Entry, patient d/c from [facility] before I could document there
I reevaluated patient in the afternoon. She says headache is about the same /. It waxes and wanes throughout the day. She took ibuprofen this afternoon that took the edge off. She also started on the magnesium supplement.
Vitals: 128/86> 137/92 P76 R18 T98.5
AST/ALT: 33/27
I reviewed her repeat LFTs are normal, my concern for Preeclampsia as the cause of her headache is very low. Also happy that her Brain MRI was negative. Patient wondering if she can go home. I messaged neurology again to see if there were any
further recommendations. Other than increasing her labetalol dose to 100mg BID (which patient declined earlier today), then no further recommendations and he is okay with discharge home. Patient advised to continue magnesium supplement daily.
tylenol and motrin prn for headahce. 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 Reasons to call/return were reviewed.
== END 2024-06-05 17:30 | disposition home or self-care (01) ==
LOC: LDRP 12:32
PROVIDERS: Obstetrics & Gynecology; ADMITTING PHYSICIAN Obstetrics & Gynecology; CONSULT PHYSICIAN Psychiatry & Neurology Neurology
DX: R51.9 Headache, unspecified (principal); O10.03 Pre-existing essential hypertension complicating the puerperium; O11.5 Pre-existing hypertension with pre-eclampsia, complicating the puerperium; J45.909 Unspecified asthma, uncomplicated; O99.345 Other mental disorders complicating the puerperium; O90.89 Other complications of the puerperium, not elsewhere classified; F53.0 Postpartum depression; Z87.891 Personal history of nicotine dependence; Z88.2 Allergy status to sulfonamides
CPT/HCPCS: 70553; 80053; 84450; 84460; 85025; A9575